=== PATIENT | male | born 1955 | race Caucasian/White ===

== ENCOUNTER → 2017-01-10 | Outpatient (CLI) | payer MEDICARE, MEDICAID ==
[~2017-01-10] MED LIST: ALPR0.5T; ALPR0.5T6; BENA20TA48; HYDR-3011; LUN1; NAPR-260; VIC
--- NOTE | 2017-01-10 15:59 | HKNOTE ---
DATE OF SERVICE: 01/10/2017 SUBJECTIVE: A 61-year-old male who presents today for followup status post left total hip revision surgery on 04/11/2011. Patient had original/primary hip replacement on 07/01/2008 but failed ASR [place] rgery. Since revision surgery in 2010, patient has been doing well. Denies any calf pain, shortnes s of breath or chest pain. The patient denies any pain directly to the hip, but has pain complaints daily, that he points to the left side buttock region. It does not radiate down the leg, but has c omplaints that it can radiate to the low back. Occasional numbness to the left foot. Denies any fa lls related to the hip. The patient did have a fall in September 2016 due to a slip on a wet floor. Denies any ongoing pain to the hip in that regard. Patient is walking up to 15 minutes before pain to the left buttock is onset. Pain to the left buttock can also ensue with sitting up to 30 minute s. Continues antibiotic prophylaxis/dental prophylaxis status post surgery. The patient also confi nena long history of low back pain. In regards to total hip revision surgery, patient states that it was a great success and continues to benefit. OBJECTIVE: VITAL SIGNS: Blood pressure is 114/58, temperature 98.9 degrees, pulse is 87, respiratory rate is 1 2, height is 5 feet 5 inches. GENERAL:. Gait is normal and nonantalgic. Well-healed surgical scar to the left buttock. Patient has full range of motion on active flexion, extension, abduction and adduction. 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 While the patient is performing range of motion in supine position, he romo s complaints of low back pain radiating to the buttock region. No calf pain/negative Homans sign. No radiating pain down the leg. There is 5/5 strength on resistance to the flexors and extensors of the left hip. Sensation is intact to light touch throughout the left lower extremity. Tenderness to palpation to the buttock region with no radiation down the leg. Mild numbness to the foot. IMAGING: X-ray to the left hip on 01/10/2017 showing all components well aligned and appeared to be well attached and integrated to the bone. No signs of lucency between metal and bone of the left h ip. ASSESSMENT AND PLAN: MRI of lumbar spine ordered today: 1. The patient will be referred to a financial assistance specialist upon completion of the MRI to the lumbar spin e for consultation and evaluation. 2. Continue dental prophylaxis status post hip revision surgery in 2010. Patient is aware that thi s will be for the remainder of his life. The patient advised to follow up on an as-needed basis as symptoms of discomfort seems to be coming from the spine in no relation to the left hip. The patien t made aware, however, that he may return should he experience any complications to the hip, status post surgery and he states understanding and compliance. Anti-inflammatories as needed for discomfort. The patient was given our standard plastic card containing instructions for the use of prophylactic antibiotics as a guideline should infection develop anywhere in the body, there be the need for tay pulation or scoping of the genitourinary tract or gastrointestinal tract, or for prophylaxis for den tistry. These instructions pertain for the rest of the patient's life. Dr. Gagnon was present during the examination today and agrees with the plan. Dictated By: YUMIKO MALDONADO for KARUNA GAGNON MD, KP/GUS Conf#: [id number] DID#: [id number]
--- NOTE | 2017-01-10 17:00 | RADRPT ---
PROCEDURE: XR Left Hip and pelvis. CLINICAL INDICATION: Left hip pain. Pelvic pain. Postop. TECHNIQUE: Two views. Frontal pelvis and lateral left hip. COMPARISON: 08/05/2014. FINDINGS: There is no fracture or dislocation. The soft tissues are normal. There is a left hip total arthroplasty which appears satisfactory. There are degenerative changes of the right hip with joint space narrowing and osteophytes. There i s no deformity. There is no lytic or blastic lesion. The upper pelvis is not included on the image. IMPRESSION: 1. Satisfactory postoperative appearance of the left hip. 2. Moderate degenerative change of the right hip. 3. Otherwise unremarkable study. RPTAT: QQ .Skyler Freeman MD, MD Date Time Electronically viewed and signed by .Skyler Freeman MD, on 01/10/2017 17:00 .R/
== END | disposition home or self-care (01) ==
LOC: HKI 13:51
DX: Z47.89 Encounter for other orthopedic aftercare (principal); M79.1 Myalgia; M54.5 Low back pain; R20.0 Anesthesia of skin; Z96.642 Presence of left artificial hip joint
CPT/HCPCS: 73502; G0463

== ENCOUNTER 2017-03-19 05:35 | Inpatient (IN) | payer MEDICARE, BC ==
[~2017-03-19] VITALS: Ht 165.1 cm; Wt 95.7 kg
[2017-03-19] VITALS (23 sets, daily range): BP systolic 95–159; BP diastolic 50–94; PULSE 70–92; RESP 16–26; Ht 165.1 cm; Wt 95.7 kg
[~2017-03-19 05:35] MED LIST changes: +LACTATED RINGER'S 1,000 ML IV* SCH
[2017-03-19] MEDS ORDERED: ALPR0.5T6 PO (05:47)
[2017-03-19] MEDS ORDERED: OLME20TA20 PO (05:47)
[2017-03-19] MEDS ORDERED: ZOLP10TA PO (05:47)
[2017-03-19] MEDS ORDERED: VANCOMYCIN 1 GM (PMX) 250 ML IVPB SCH ×2 (06:00→12:30)
[2017-03-19] MEDS ORDERED: SURGIFOAM POWDER 1 GM KIT ONE ×3 (06:41→09:51)
[2017-03-19] MEDS ORDERED: CEFAZOLIN 1 GM INJ ONE ×2 (06:42→07:05)
[2017-03-19] MEDS ORDERED: HEPARIN 1000 UNITS/ML 10 ML INJ ONE ×2 (06:42→08:57)
[2017-03-19] MEDS ORDERED: GELATIN SIZE 100 SPONGE ONE ×2 (06:42→08:53)
[2017-03-19] MEDS ORDERED: THROMBIN 5000 UNIT VIAL ONE ×4 (06:42→09:52)
[2017-03-19] MEDS ORDERED: BUPIVACAINE 0.25%/EPI (SDV) 30 ML INJ ONE (06:42)
[2017-03-19] MEDS ORDERED: SUCCINYLCHOLINE CHLORIDE 100 MG/5 ML SYG IV ONE (07:00)
[2017-03-19] MEDS ORDERED: GLYCOPYRROLATE 1 MG INJ ONE (07:00)
--- NOTE | 2017-03-19 07:02 | HPN ---
Date/Time of Note Date/Time of Note DATE: 03/19/17 TIME: 07:01 Interval H&P Admission Note Pt. seen H&P reviewed: No system changes DUGLAS ELIAS PA-C March 19, 2017 07:02
[2017-03-19] MEDS ORDERED: ROCURONIUM 50 MG INJ ONE (07:05)
[2017-03-19] MEDS ORDERED: PROPOFOL 20 ML ONE (07:05)
[2017-03-19] MEDS ORDERED: NEOSTIGMINE 3 MG/3 ML SYRINGE ONE (07:06)
[2017-03-19] MEDS ORDERED: MIDAZOLAM 1 MG/ML 2 ML INJ ONE (07:06)
[2017-03-19] MEDS ORDERED: ONDANSETRON 4 MG INJ ONE (07:06)
[2017-03-19] MEDS ORDERED: FENTAnyl 50 MCG/ML VIAL ONE (07:06)
[2017-03-19] MEDS ORDERED: DEXAMETHASONE 4 MG/ML 1 ML INJ ONE (07:06)
[2017-03-19] MEDS ORDERED: VANCOMYCIN 1 GM INJ ONE (08:05)
[2017-03-19] MEDS ORDERED: LABETALOL HCL 20MG INJ ONE (08:09)
[2017-03-19] MEDS ORDERED: MEPERIDINE 25 MG INJ IV PRN (08:30)
[2017-03-19] MEDS ORDERED: MIDAZOLAM 1 MG/ML 2 ML INJ IV PRN (08:30)
[2017-03-19] MEDS ORDERED: LABETALOL HCL 20MG INJ IV PRN (08:30)
[2017-03-19] MEDS ORDERED: TRIMETHOBENZAMIDE 100 MG/ML VIAL IM PRN (08:30)
[2017-03-19] MEDS ORDERED: EPHEDrine SULFATE 50 MG/5 ML SYG IV PRN (08:30)
[2017-03-19] MEDS ORDERED: ONDANSETRON 4 MG INJ IV PRN ×2 (08:30→12:30)
[2017-03-19] MEDS ORDERED: hydrALAzine 20 MG INJ IV PRN (08:30)
[2017-03-19] MEDS ORDERED: FENTAnyl 50 MCG/ML VIAL IV PRN ×3 (08:30)
[2017-03-19] MEDS ORDERED: HYDROmorphONE (0.2 MG/ML) 10ML SYG IV PRN ×2 (08:30)
[2017-03-19] MEDS ORDERED: DIPHENHYDRAMINE 50 MG INJ IV PRN ×2 (08:30→12:30)
[2017-03-19] MEDS ORDERED: PROPOFOL 100 ML ONE ×2 (08:39→11:13)
[2017-03-19] MEDS ORDERED: CA CHLORIDE 10% 10 ML SYRINGE ONE (08:57)
[2017-03-19] MEDS ORDERED: PHENYLephrine (100 MCG/ML) 5ML SYG ONE (09:50)
[2017-03-19] MEDS ORDERED: ALBUMIN HUMAN 5% 500 ML ONE (10:02)
--- NOTE | 2017-03-19 11:41 | OPR ---
DATE OF OPERATION: 03/19/2017 PREOPERATIVE DIAGNOSES: 1. L4-L5 retrolisthesis and stenosis. 2. L5-S1 grade 1 isthmic spondylolisthesis with stenosis, unstable. 3. Lumbar radiculopathy. 4. Morbid obesity (BMI 36). POSTOPERATIVE DIAGNOSES: 1. L4-L5 retrolisthesis and stenosis. 2. L5-S1 grade 1 isthmic spondylolisthesis with stenosis, unstable. 3. Lumbar radiculopathy. 4. Morbid obesity (BMI 36). OPERATION PERFORMED 1. Anterior lumbar interbody fusion at L4-L5 and L5-S1. 2. Placement of intervertebral biomechanical device with integral screws. 3. Placement of anterior locking plate at L4-L5 and L5-S1. 4. Use of allograft. 5. Use of C-arm fluoroscopy with interpretation without radiologist present. 6. Application of NuShield. 7. Intraoperative neuromonitoring (2 hours 45 minutes). IMPLANTS: 1. [employer] Tesera SA 38 x 30 mm with 11 mm height with 7 degree lordosis at L4-L5 with 25 mm screws and 38 x 30 mm with 13 mm height and 12 degree lordosis at L5-S1 with 25 mm screws into L5 and 30 m m screws into S1. 2. Fibergraft. 3. NuShield. PRIMARY SURGEON: Melquiades Lou MD COSURGEON: Julio Cesar Rasheed MD [employer] DEAN: JOEL Mccracken NEED FOR CO-SURGEON: A co-surgeon was required in order to perform the vascular access. This was a standard of care. FINDINGS: Neuromonitoring at the start of the case revealed right L4 amplitude down 30%, bilateral L5 amplitude down 30%, left S1 amplitude down 40%, right S1 amplitude down 30%. At the end of the c ase, all signals were normal. The patient had instability at both L4-L5 and L5-S1 with stenosis. S tandard instruments had to be utilized due to the patient's obesity. ESTIMATED BLOOD LOSS: Per Dr. Rasheed. DRAINS: None. SPECIMENS: L4-L5 and L5-S1 disk was sent to Pathology. COMPLICATIONS OF PROCEDURES: None. ANESTHESIOLOGIST: Marco A Barraza MD TYPE OF ANESTHESIA: General. INDICATIONS FOR PROCEDURE: This is a 62-year-old gentleman with lumbosacral radiculopathy in the se tting of stenosis and unstable listhesis. He failed nonoperative measures, therefore, I recommended proceeding with the above-mentioned surgery. Preoperatively, we discussed the risks, benefits, and alternatives. He understood and wished to proceed. DESCRIPTION OF PROCEDURE IN DETAIL: The patient was identified in the preoperative holding area, gi lazarus vancomycin antibiotics, taken to the operating room, where he was successfully placed under gene ral anesthesia. Neuromonitoring leads were placed, sequential compressive devices were applied. Fo sulema catheter introduced. Latex precautions were taken. Arterial line was placed. Neuromonitoring was utilized during this portion of the procedure for 2 hours and 45 minutes to include SSEP, MEP, a nd EMG. Start time was 8:00 a.m., closure time was 10:45 a.m. The patient was placed on the operative table in supine position. All bony prominences were well pa dded. The abdomen was prepped and draped in the usual sterile fashion. Dr. Rasheed performed an anterior retroperitoneal approach from the left. He will dictate the approach separately. Once he had identified the spine, I placed a bent spinal needle into the L5-S1 level and took AP and lateral images to confirm the correct levels. Next, annulotomy was made followed by radical diskectomy usi ng curettes, pituitary rongeurs, and Kerrison punches as well as distracters. I then placed various trials and chose the appropriate graft height. I then took the titanium cage within which I placed allograft and I impacted the intervertebral biomechanical device into the L5-S1 level to complete t he anterior lumbar interbody fusion. I then placed the integral screws into L5 and S1. I then plac ed an anterior locking plate. I then noticed that the 4 x 4 was stuck behind the locking plate and therefore, this had to be removed. The gauze was removed and the locking plate was reapplied. Of n ote, extended instruments had to be utilized due to the patient's obesity and this added complexity to the procedure. I then turned my attention to the L4-L5 level. Similarly here a radical diskectomy was performed. I then placed various trials and chose the appropriate graft height. I then took the titanium cage within which I placed allograft and I impacted intervertebral biomechanical device into the L4-L5 le ya to complete the anterior lumbar interbody fusion at this level. I then placed the integral scre ws into L4 and L5. I then placed anterior locking plate at L4-L5. Once this was done, all the nerv e signals returned to normal. I took final AP and lateral images and I was happy with the placement of the hardware and the alignment of the spine. The wound was then irrigated. NuShield device was applied and Dr. Rasheed proceeded to close the wound. He will dictate both the opening and the c losure of this procedure. Upon completion, the patient will be transferred into the prone position for stage II. During stage I, there were no apparent complications. Lap, sponge, and instrument co unts were correct x2. Dictated By: MELQUIADES BRUCE/GUS Conf#: [id number] DID#: [id number]
[2017-03-19] MEDS ORDERED: AL HYDROX/MG HYDROX/SIMETH 30 ML CUP PO PRN (12:30)
[2017-03-19] MEDS ORDERED: ZOLPIDEM 5 MG TAB PO PRN (12:30)
[2017-03-19] MEDS ORDERED: NALOXONE (0.4 MG/ML) INJ IV PRN (12:30)
[2017-03-19] MEDS ORDERED: HYDROmorphONE 1 MG/ML SYG IV PRN (12:30)
[2017-03-19] MEDS ORDERED: BISACODYL 10 MG SUPP PR PRN (12:30)
[2017-03-19] MEDS ORDERED: CEPASTAT LOZENGE MT PRN (12:30)
[2017-03-19] MEDS ORDERED: HYDROmorphONE 0.2 MG/ML PCA ONE (12:36)
[2017-03-19] MEDS: HYDROmorphONE 0.2 MG/ML PCA IV SCH (12:50)
[2017-03-19] MEDS: HYDROmorphONE (0.2 MG/ML) 10ML SYG IV PRN ×4 (12:51→13:31)
--- NOTE | 2017-03-19 13:10 | OPR ---
DATE OF OPERATION: 03/19/2017 PREOPERATIVE DIAGNOSIS: Status post anterior lumbar interbody fusion at L4-L5 and L5-S1 for instabi lity and stenosis with radiculopathy. POSTOPERATIVE DIAGNOSIS: Status post anterior lumbar interbody fusion at L4-L5 and L5-S1 for instab ility and stenosis with radiculopathy. OPERATIONS PERFORMED: 1. Pedicle screw placement at L4 and S1 bilaterally. 2. Posterolateral fusion at L4-L5 and L5-S1. 3. Use of allograft. 4. Bone marrow aspiration from L4. 5. Use of C-arm fluoroscopy with interpretation without radiologist present. 6. Intraoperative neuromonitoring (1 hour). IMPLANTS: 1. [place] [employer] pedicle screws 6.5 x 45 mm left L4, 6.5 x 40 mm right L4 and bilateral S1. 2. 60 mm rods. PRIMARY SURGEON: Melquiades Lou MD CIVIL ENGINEERING TECHNICIAN: JOEL Mccracken NEED FOR SUPERVISOR INTERNATIONAL RESERVATIONS: During this spinal surgical procedure, my banking assistant was used to retrac t and protect the spinal nerves and dural sac. My banking assistant also employed the suction catheters to evacuate blood from the surgical field to improve visualization of the neural structures. The christiano tant was medically necessary to facilitate the completion of the surgery in a safe and expeditious m liz. State of [place] regulations, as well as hospital bylaws, preclude the use of non-license d health care personnel, such as operating room technicians, to perform these functions. FINDINGS: Neuromonitoring at the end of the case was normal. ESTIMATED BLOOD LOSS: 40 mL. DRAINS: None. SPECIMENS: None. COMPLICATIONS OF PROCEDURE: None. ANESTHESIOLOGIST: Marco A Barraza MD TYPE OF ANESTHESIA: General. INDICATIONS FOR PROCEDURE: This is a 62-year-old gentleman with instability at L4-L5 and L5-S1 with radiculopathy. He failed nonoperative measures and completed stage I anterior approach which is di ctated separately, and now presents for stage II. DESCRIPTION OF PROCEDURE IN DETAIL: The patient completed the stage I anterior fusion at L4-L5 and L5-S1. This portion is dictated separately. Upon completion, he was placed on the operative room t able in prone position over a Waqar frame. All bony prominences were padded. The back was then pr epped and draped in the usual sterile fashion. Neuromonitoring was utilized for this stage of the p rocedure for 1 hour to include SSEP, MEP, and EMG. This was performed by [facility]. This st age started at 11:15 a.m. and was finished 12:15 p.m. Using the C-arm fluoroscope, I identified the incision site, anesthetized skin with Marcaine and epinephrine. An incision was then made parasag ittally over the L4 and S1 pedicles. Single incisions were used parasagittally. Jamshidi needles w ere then placed into the L4 and S1 pedicles bilaterally into the vertebral bodies. Due to the signi ficant lower doses, I elected to now place the L5 screws. Once the screws were in place under nydia nce, I performed a bone marrow aspiration from the left L4 vertebral body and pedicle. I then place d the appropriate size screws bilaterally at L4 and S1. Once this was done, I stimulated each of th e screws and there was no evidence of cortical breach. I then placed the 60 mm rods bilaterally wit h set screws placed with tightening per manufacture's specifications. The extension tabs were remov ed. At this point, all nerve signals remained normal. I irrigated the wound. I took final AP and lateral images and I was happy with placement of the hardware and alignment of the spine. I then pr epared the posterolateral gutters and placed allograft for a posterolateral fusion at L4-5 and L5-S1 bilaterally. I then closed the deep fascia with #1 Vicryl stitch. I closed subcutaneous tissue wi th a 2-0 Vicryl stitch. Dermabond was then applied. The patient was then awakened from anesthesia and taken to the recovery room in stable condition. Lap, sponge, and instrument counts were correct x2. There were no apparent complications during the procedure. The patient will be admitted to the orthopedic [facility] for routine postoperative care to include pain c ontrol, neurovascular checks, antibiotics, and physical therapy. Dictated By: MELQUIADES BRUCE/GUS Conf#: [id number] DID#: [id number]
--- NOTE | 2017-03-19 14:08 | RADRPT ---
PROCEDURE: XR Abdomen. CLINICAL INDICATION: Abdomen pain. Postop spine surgery. TECHNIQUE: AP supine abdomen x-ray. COMPARISON: None. FINDINGS: The bowel gas pattern is normal. There is no evidence of obstruction. There are no abnormal calcifications overlying the urinary tracts. There has been prior surgery with hardware in the lower lumbar spine. Overlying surgical clips are noted. There is a left hip total arthroplasty. A Su catheter is in the bladder. There is no ot her radiopaque foreign body. IMPRESSION: 1. Postoperative changes of the lower lumbar spine and left hip. 2. Su catheter. 3. No other radiopaque foreign body. RPTAT: QQ .Skyler Freeman MD, MD Date Time Electronically viewed and signed by .Skyler Freeman MD, on 03/19/2017 14:08 .R/
--- NOTE | 2017-03-19 14:09 | RADRPT ---
PROCEDURE: Intraoperative imaging of the lumbar spine with fluoroscopy. CLINICAL INDICATION: Back pain. Intraoperative. TECHNIQUE: 3 images of the lumbar spine were obtained in the operating room with an image intensif ier. No radiologist was in attendance. 35.1 seconds of fluoroscopy time was used. COMPARISON: No prior study is available for comparison. FINDINGS: Images demonstrate surgical instruments overlying the lower lumbar spine. IMPRESSION: 1. Intraoperative imaging of the lumbar spine. RPTAT: QQ .Skyler Freeman MD, MD Date Time Electronically viewed and signed by .Skyler Freeman MD, MD on 03/19/2017 14:08 .R/
--- NOTE | 2017-03-19 14:15 | CONS ---
DATE OF ADMISSION: 03/19/2017 DATE OF CONSULTATION: 03/19/2017 TYPE OF CONSULTATION: Postoperative Medical Consultative Note Thank you very much for allowing me to evaluate this 62-year-old male who just underwent posterior l umbar back surgery. HISTORICAL EVENTS: As you well know, this patient has had persistent back and bilateral leg pain an d for this, underwent evaluation by you and following imaging studies and the lack of conservative t herapy to help resolve, elected to proceed with surgery. Now in recovery, complaining of back pain without cough, wheezing, shortness of breath, nausea, vomiting, abdominal or chest pain. PAST MEDICAL HISTORY: Includes anxiety, arthritis, depression, hypertension, left hip replacement x 2. ALLERGIES: INCLUDE: 1. PENICILLIN. 2. LASIX. MEDICATIONS: 1. Xanax. 2. Ambien. 3. Naprosyn. 4. Ibuprofen. 5. Benicar. SOCIAL HISTORY: Nonsmoker, occasionally drinks. PHYSICAL EXAMINATION: GENERAL: Ald[place] male in no acute distress. VITAL SIGNS: Blood pressure 122/80, pulse 70, respirations are 20, he was afebrile. EYES: Extraocular muscles were full. NOSE, MOUTH, AND THROAT: Normal. NECK: Supple. There was no jugular venous distention, thyroid enlargement or adenopathy. Carotids 2+. LUNGS: Clear. HEART: Rhythm regular. No murmur. No third or fourth sound. ABDOMEN: Slight distension and 1+ tender. Liver and spleen not palpable. EXTREMITIES: No edema, no calf tenderness. IMPRESSION: 1. Status postop lumbar back surgery, stable. 2. History of hypertension. We will be certain as to medications he was taking at home and will co ntinue the same and monitor blood pressure throughout. 3. We will follow daily for signs and symptoms of thromboembolic disease. Dictated By: SAVANNA VIVAR/GUS Conf#: [id number] DID#: [id number] CC: ALETA ALBARADO MD;*EndCC*
--- NOTE | 2017-03-19 14:26 | RADRPT ---
PROCEDURE: Intraoperative imaging of the lumbar spine with fluoroscopy. CLINICAL INDICATION: Back pain. Intraoperative. TECHNIQUE: 5 images of the lumbar spine were obtained in the operating room with an image intensif ier. No radiologist was in attendance. 140 seconds of fluoroscopy time was used. COMPARISON: No prior study is available for comparison. FINDINGS: Multiple surgical instruments, screws, and rods are present in the lower lumbar spine. IMPRESSION: 1. Intraoperative imaging of the lumbar spine. RPTAT: QQ .Skyler Freeman MD, Date Time Electronically viewed and signed by .Skyler Freeman MD, on 03/19/2017 14:26 .R/
[2017-03-19] MEDS: ALPRAZOLAM 0.5 MG TAB PO SCH ×2 (14:40→21:00)
[2017-03-19] MEDS: D5W-0.45 NACL + KCL 20 MEQ 1,000 ML IV SCH (14:41)
[2017-03-19] MEDS ORDERED: LOSARTAN 50 MG TAB PO SCH (16:00)
[2017-03-19] MEDS: VANCOMYCIN 1 GM (PMX) 250 ML IVPB SCH (18:07)
[2017-03-19] MEDS: DOCUSATE SODIUM 100 MG CAP PO SCH (21:18)
[2017-03-20 00:42] VITALS: BP 101/58; RESP 18
[2017-03-20] MEDS: D5W-0.45 NACL + KCL 20 MEQ 1,000 ML IV SCH (01:08)
[2017-03-20] MEDS: HYDROmorphONE 0.2 MG/ML PCA IV SCH ×3 (01:32→20:46)
--- NOTE | 2017-03-20 03:02 | OPR ---
DATE OF OPERATION: PREOPERATIVE DIAGNOSIS: Degenerative disk disease, lumbosacral spine. POSTOPERATIVE DIAGNOSIS: Degenerative disk disease, lumbosacral spine. PROCEDURE: 1. Anterior retroperitoneal exposure, interbody fusion L4-L5. 2. Anterior retroperitoneal exposure, interbody fusion L5-S1. SURGEON: Dr. Rasheed CO-SURGEON: Dr. Albarado Risks, benefits, complications and alternative therapies explained to the patient and the family, co nsent obtained. OPERATIVE TECHNIQUE: The patient was placed in supine position, prepped and draped in usual sterile fashion. Time-out was called, antibiotics were given and I started. I made an 8 cm incision in the left lower quadrant below the umbilicus. Incision was taken down to the subcutaneous tissue which was then opened using electrocautery. Left anterior rectus sheath was opened in the direction of the wound. The retroperitoneal space was entered. Bookwalter retractor was placed retracting the bowel contents to the right and the left rectus muscle to the left. We p roceeded with dissecting the iliac vessels. The left iliolumbar vessel was ligated using 2-0 silk s utures and titanium clips. Middle sacral vessels were ligated in a similar fashion, exposure for L4 -L5 was obtained by retracting the left common iliac vessels and vena cava and aorta to the right. Exposure for L4-L5 was obtained by going between the right and left common iliac vessels. After the fusion was done, all the needle counts and sponge counts were correct. No evidence of any bleeding was noted. The wound was irrigated using antibiotic solution. Anterior rectus sheath was closed u sing #1 Vicryl suture in running fashion with interrupted sutures in the middle. The wound was irri gated and closed in 2 layers of 2-0 Vicryl suture for subcutaneous, and Steri-Strips for the skin. Patient tolerated procedure well. Dictated By: DINESH RASHEED MD FM/NTS Conf#: [id number] DID#: [id number] CC: ALETA ALBARADO MD;*EndCC*
[2017-03-20 05:13] LABS: ADD SCAN DIFF NO
[2017-03-20 05:14] VITALS: BP 111/58; PULSE 104; RESP 20
[2017-03-20 05:19] LABS: HEMATOCRIT 34.4 % (42.0-52.0); HEMOGLOBIN 11.7 g/dl (14.0-18.0); MEAN CORPUSCULAR HEMOGLOBIN 33.8 pg (29.0-33.0); MEAN CORPUSCULAR VOLUME 99.4 fl (82.0-101.0); MEAN PLATELET VOLUME 11.4 fl (7.4-10.4); PLATELET COUNT 165 10^3/UL (140-415); RED BLOOD COUNT 3.46 10^6/ul (4.70-6.10); WHITE BLOOD COUNT 4.3 10^3/ul (4.8-10.8)
[2017-03-20 05:23] LABS: POTASSIUM 4.4 mmol/L (3.5-5.1)
[2017-03-20 05:25] LABS: CREATININE 1.32 mg/dl (0.61-1.24)
[2017-03-20 05:26] LABS: MAGNESIUM 1.8 mg/dl (1.7-2.5)
[2017-03-20] MEDS: VANCOMYCIN 1 GM (PMX) 250 ML IVPB SCH (05:40)
[2017-03-20 07:00] VITALS: BP 93/45; RESP 20
--- NOTE | 2017-03-20 08:22 | CONS ---
Date/Time of Note Date/Time of Note DATE: 03/20/17 TIME: 08:19 Assessment/Plan Assessment/Plan Additional Assessment/Plan 1. Post op lumbar back surgery, anterior approach with mild ileus, KUB was ordered, diet changed to clear liquid 2. Hx HBP, not problematic 3. Mild acute renal failure sec to periop hypotension and ARB which I stopped. Consultation Date/Type/Reason Admit Date/Time March 19, 2017 at 05:35 Initial Consult Date Detailed Summary Respiratory: pleuritic pain, No cough, No shortness of breath Cardiovascular: No chest pain Gastrointestinal: pain (is mild and bloated, he had 1 episdoe of dry heaving) Genitourinary: other (sevilla in place) Musculoskeletal: back pain (back pain is moderate) Exam/Review of Systems Vital Signs Vitals Vital Signs Date Time Temp Pulse Resp B/P Pulse Ox O2 Delivery O2 Flow Rate FiO2 03/20/17 07:00 97.9 105 20 93/45 100 03/20/17 05:14 Nasal Cannula 2.0 Intake and Output 03/19/17 03/19/17 03/20/17 15:00 23:00 07:00 Intake Total 3900 ml 1150 ml 1140 ml Output Total 650 ml 900 ml 450 ml Balance 3250 ml 250 ml 690 ml Exam Neck: No jvd Respiratory: clear to auscultation Cardiovascular: regular rate and rhythm Gastrointestinal: other (distended, few bs present, 1+ gen tender) Results Result Diagram: 03/20/17 0434 03/20/17 0434 Results 24 hrs Laboratory Tests Test 03/20/17 04:34 White Blood Count 4.3 L Red Blood Count 3.46 L Hemoglobin 11.7 L Hematocrit 34.4 L Mean Corpuscular Volume 99.4 Mean Corpuscular Hemoglobin 33.8 H Mean Corpuscular Hemoglobin Concent 34.0 Red Cell Distribution Width 13.0 Platelet Count 165 Mean Platelet Volume 11.4 H Neutrophils % Eosinophils % Neutrophils # Eosinophils # Sodium Level 138 Potassium Level 4.4 Chloride Level 102 Carbon Dioxide Level 27 Anion Gap 13 Blood Urea Nitrogen 13 Creatinine 1.32 H Glucose Level 151 Calcium Level 8.0 L Magnesium Level 1.8 Medications Medications Current Medications Potassium Chloride/Dextrose/ Sod Cl (D5-1/2ns + KCl 20 Meq) 1,000 ml @ 100 mls/ hr Q10H IV Last administered on 03/20/17 01:08; Admin Dose 100 MLS/HR; Start 03/19/17 at 12:22 Oxycodone/ Acetaminophen (Endocet (10/ 325)) 1 tab Q4H PRN PO PAIN LEVEL 1-5; Start 03/21/17 at 10:00 Oxycodone/ Acetaminophen (Endocet (10/ 325)) 2 tab Q4H PRN PO PAIN LEVEL 6-10; Start 03/21/17 at 10:00 Hydromorphone HCl (Dilaudid) 0.2 mg Q1H PRN IV BREAKTHROUGH PAIN Last administered on 03/19/17 14:28; Admin Dose 0.2 MG; Start 03/19/17 at 12:30 Ondansetron HCl (Zofran Inj) 4 mg Q6H PRN IV NAUSEA AND/OR VOMITING Last administered on 03/20/17 01:08; Admin Dose 4 MG; Start 03/19/17 at 12:30 Bisacodyl (Dulcolax Supp) 10 mg DAILY PRN DE CONSTIPATION; Start 03/19/17 at 12: 30 Docusate Sodium (Colace) 100 mg BID PO Last administered on 03/19/17 21:18; Admin Dose 100 MG; Start 03/19/17 at 21:00 Al Hydrox/Mg Hydrox/Simethicone (Mag-Al Plus) 15 ml Q6H PRN PO CONSTIPATION/ DYSPEPSIA; Start 03/19/17 at 12:30 Acetaminophen (Tylenol Tab) 650 mg Q4H PRN PO CONNORS OR TEMP GREATER THAN 101.3F; Start 03/19/17 at 12:30 Carisoprodol (Soma) 350 mg TID PRN PO MUSCLE SPASMS; Start 03/19/17 at 12:30 Phenol (Cepastat Lozenge) 1 lozenge PRN PRN MT SORE THROAT; Start 03/19/17 at 12 :30 Diphenhydramine HCl (Benadryl) 25 mg Q6H PRN IV ITCHING; Start 03/19/17 at 12:30 Naloxone HCl (Narcan) 0.2 mg Q2M PRN IV RR 8 BREATHS/MIN OR LESS; Start at 12:30 Hydromorphone HCl (Dilaudid CAMPAIGN MARKETING MANAGER) CAMPAIGN MARKETING MANAGER to be started in PACU Q4PCA IV Last administered on 03/20/17 01:32; Admin Dose 6 MG; Start 03/19/17 at 12:30; Stop 03/21/17 at 10:00 Miscellaneous Information 1. Hold CAMPAIGN MARKETING MANAGER at 1,000... CAMPAIGN MARKETING MANAGER IV ; Start 03/19/17 at 12: 30 Alprazolam (Xanax) 0.5 mg BID PO Last administered on 03/19/17 14:40; Admin Dose 0.5 MG; Start 03/19/17 at 14:00 SAVANNA CURRY MD March 20, 2017 08:22
[2017-03-20 08:47] LABS: ALBUMIN 3.7 g/dl (3.3-4.9); BILIRUBIN,INDIRECT 0.5 mg/dl (0-1.1); BILIRUBIN,TOTAL 0.5 mg/dl (0.2-1.3); TOTAL PROTEIN 6.1 g/dl (6.1-8.1)
[2017-03-20 09:00] VITALS: BP 106/61; RESP 18
[2017-03-20] MEDS: SOD CHLORIDE 0.9% 1,000 ML IV SCH ×2 (09:38→18:08)
[2017-03-20] MEDS: ALPRAZOLAM 0.5 MG TAB PO SCH ×2 (09:40→20:22)
[2017-03-20] MEDS: DOCUSATE SODIUM 100 MG CAP PO SCH ×2 (09:40→20:22)
[2017-03-20 09:52] LABS: ADD UMIC YES; URINE BILIRUBIN (Dip) NEGATIVE (NEGATIVE); URINE BLOOD (Dip) 3+ (NEGATIVE); URINE COLOR YELLOW (YELLOW); URINE GLUCOSE (Dip) NEGATIVE (NEGATIVE); URINE KETONES (Dip) NEGATIVE (NEGATIVE); URINE LEUKOCYTE ESTERASE (Dip) NEGATIVE (NEGATIVE); URINE NITRITE (Dip) NEGATIVE (NEGATIVE); URINE TOTAL PROTEIN (Dip) 1+ (NEGATIVE); URINE UROBILINOGEN (Dip) 0.2 E.U./dL (0.1-1.0)
[2017-03-20 10:11] LABS: BACTERIA,URINE FEW
[2017-03-20 11:26] LABS: LYMPHOCYTES # 0.7 10^3/ul (0.8-2.9); MONOCYTE # 0.3 10^3/ul (0.3-0.9); MYELOCYTES # 0.1
--- NOTE | 2017-03-20 12:18 | PN ---
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 saturday Subjective 24 Hr Interval Summary patient c/o LBP, abdominal fullness Exam/Review of Systems Vital Signs Vitals Vital Signs Date Time Temp Pulse Resp B/P Pulse Ox O2 Delivery O2 Flow Rate FiO2 03/20/17 09:00 98.1 18 106/61 96 Nasal Cannula 2.0 03/20/17 07:00 105 Intake and Output 03/19/17 03/19/17 03/20/17 15:00 23:00 07:00 Intake Total 3900 ml 1150 ml 1140 ml Output Total 650 ml 900 ml 450 ml Balance 3250 ml 250 ml 690 ml Exam Free Text/Dictation NVID no calf TTP/cording, no LE edema Results Result Diagram: 03/20/17 0434 03/20/17 0434 DUGLAS ELIAS PA-C March 20, 2017 12:18
[2017-03-20] MEDS: CARISOPRODOL 350 MG TAB PO PRN (18:07)
[2017-03-20 19:53] VITALS: BP 117/58; RESP 19
[2017-03-20 21:45] VITALS: BP 102/54; PULSE 138; RESP 18
[2017-03-20] MEDS ORDERED: ALPRAZOLAM 0.25 MG TAB PO ONE (23:00)
[2017-03-21] VITALS (9 sets, daily range): BP systolic 83–110; BP diastolic 44–59; PULSE 98–125; RESP 19–20
[2017-03-21] MEDS: SOD CHLORIDE 0.9% 1,000 ML IV SCH ×3 (04:28→21:13)
[2017-03-21 04:43] LABS: ADD SCAN DIFF NO
[2017-03-21 04:53] LABS: HEMATOCRIT 28.4 % (42.0-52.0); HEMOGLOBIN 9.7 g/dl (14.0-18.0); MEAN CORPUSCULAR HGB CONC 34.2 g/dl (32.0-37.0); MEAN CORPUSCULAR VOLUME 99.6 fl (82.0-101.0); MEAN PLATELET VOLUME 11.3 fl (7.4-10.4); PLATELET COUNT 139 10^3/UL (140-415); RED BLOOD COUNT 2.85 10^6/ul (4.70-6.10); RED CELL DISTRIBUTION WIDTH 13.3 % (11.5-14.5); WHITE BLOOD COUNT 7.7 10^3/ul (4.8-10.8)
[2017-03-21 05:26] LABS: CALCIUM 7.7 mg/dl (8.4-10.2); CREATININE 1.89 mg/dl (0.61-1.24); MAGNESIUM 1.7 mg/dl (1.7-2.5); POTASSIUM 4.7 mmol/L (3.5-5.1)
--- NOTE | 2017-03-21 08:05 | CONS ---
Date/Time of Note Date/Time of Note DATE: 03/21/17 TIME: 07:58 Assessment/Plan Assessment/Plan Additional Assessment/Plan 1. Post op lumbar laminectomy 2. Acute renal failure, sec to perioperative hypotension, renal ultz ordered, Elizabeth noted 3. Hx HBP, inactive 4. Tachycardia last night, EKG revealed sinus,.cards to see, Troponin ordered Consultation Date/Type/Reason Admit Date/Time March 19, 2017 at 05:35 Detailed Summary Respiratory: No cough, No shortness of breath Cardiovascular: No chest pain Gastrointestinal: other (bloated) Genitourinary: other (sevilla in place) Musculoskeletal: back pain (moderate) Exam/Review of Systems Vital Signs Vitals Vital Signs Date Time Temp Pulse Resp B/P Pulse Ox O2 Delivery O2 Flow Rate FiO2 03/21/17 07:40 98.2 119 19 83/44 93 03/20/17 21:45 Nasal Cannula 2.0 Intake and Output 03/20/17 03/20/17 03/21/17 15:00 23:00 07:00 Intake Total 1500 ml 1450 ml Output Total 1000 ml 1000 ml Balance 500 ml 450 ml Exam Neck: No jvd Respiratory: clear to auscultation Cardiovascular: regular rate and rhythm Gastrointestinal: other (distended with few bs, mild gen tend) Extremities: No edema (and no calf tend) Results Result Diagram: 03/21/17 0415 03/21/17 0415 Results 24 hrs Laboratory Tests Test 03/20/17 09:15 03/21/17 04:15 Urine Color YELLOW Urine Clarity SLIGHTLY CLOUDY Urine pH 5.5 Urine Specific [place] >=1.030 H Urine Ketones NEGATIVE Urine Nitrite NEGATIVE Urine Bilirubin NEGATIVE Urine Urobilinogen 0.2 E.U./dL Urine Leukocyte Esterase NEGATIVE Urine Microscopic RBC 2-5 Urine Microscopic WBC 0-2 Urine Bacteria FEW Urine Hemoglobin 3+ H Urine Random Sodium 45 Urine Glucose NEGATIVE Urine Total Protein 1+ H White Blood Count 7.7 # Red Blood Count 2.85 L Hemoglobin 9.7 L Hematocrit 28.4 L Mean Corpuscular Volume 99.6 Mean Corpuscular Hemoglobin 34.0 H Mean Corpuscular Hemoglobin Concent 34.2 Red Cell Distribution Width 13.3 Platelet Count 139 L Mean Platelet Volume 11.3 H Neutrophils % Eosinophils % Neutrophils # Eosinophils # Sodium Level 132 L Potassium Level 4.7 Chloride Level 100 Carbon Dioxide Level 27 Anion Gap 10 Blood Urea Nitrogen 18 Creatinine 1.89 H Glucose Level 118 Calcium Level 7.7 L Phosphorus Level 3.4 Magnesium Level 1.7 Medications Medications Current Medications Oxycodone/ Acetaminophen (Endocet ( 325)) 1 tab Q4H PRN PO PAIN LEVEL 1-5; Start 03/21/17 at 10:00 Oxycodone/ Acetaminophen (Endocet ( 325)) 2 tab Q4H PRN PO PAIN LEVEL 6-10; Start 03/21/17 at 10:00 Hydromorphone HCl (Dilaudid) 0.2 mg Q1H PRN IV BREAKTHROUGH PAIN Last administered on 03/19/17 14:28; Admin Dose 0.2 MG; Start 03/19/17 at 12:30 Ondansetron HCl (Zofran Inj) 4 mg Q6H PRN IV NAUSEA AND/OR VOMITING Last administered on 03/20/17 01:08; Admin Dose 4 MG; Start 03/19/17 at 12:30 Bisacodyl (Dulcolax Supp) 10 mg DAILY PRN [place] CONSTIPATION; Start 03/19/17 at 12: 30 Docusate Sodium (Colace) 100 mg BID PO Last administered on 03/20/17 20:22; Admin Dose 100 MG; Start 03/19/17 at 21:00 Al Hydrox/Mg Hydrox/Simethicone (Mag-Al Plus) 15 ml Q6H PRN PO CONSTIPATION/ DYSPEPSIA; Start 03/19/17 at 12:30 Acetaminophen (Tylenol Tab) 650 mg Q4H PRN PO CONNORS OR TEMP GREATER THAN 101.3F; Start 03/19/17 at 12:30 Carisoprodol (Soma) 350 mg TID PRN PO MUSCLE SPASMS Last administered on 18:07; Admin Dose 350 MG; Start 03/19/17 at 12:30 Phenol (Cepastat Lozenge) 1 lozenge PRN PRN [place] SORE THROAT; Start 03/19/17 at 12 :30 Diphenhydramine HCl (Benadryl) 25 mg Q6H PRN IV ITCHING; Start 03/19/17 at 12:30 Naloxone HCl (Narcan) 0.2 mg Q2M PRN IV RR 8 BREATHS/MIN OR LESS; Start at 12:30 Hydromorphone HCl (Dilaudid RADIOLOGY RECEPTIONIST) RADIOLOGY RECEPTIONIST to be started in PACU Q4PCA IV Last administered on 03/20/17 20:46; Admin Dose 6 MG; Start 03/19/17 at 12:30; Stop 03/21/17 at 10:00 Miscellaneous Information 1. Hold RADIOLOGY RECEPTIONIST at 1,000... RADIOLOGY RECEPTIONIST IV ; Start 03/19/17 at 12: 30 Alprazolam 0.5 mg 0.5 mg BID PO Last administered on 03/20/17 20:22; Admin Dose 0.5 MG; Start 03/19/17 at 14:00 Sodium Chloride (NS) 1,000 ml @ 100 mls/hr Q10H IV Last administered on 18:08; Admin Dose 100 MLS/HR; Start 03/20/17 at 08:30 SAVANNA CURRY MD March 21, 2017 08:05
[2017-03-21] MEDS ORDERED: SOD CHLORIDE 0.9% 250 ML IV ONE (08:30)
--- NOTE | 2017-03-21 08:37 | DS ---
DATE OF ADMISSION: 03/19/2017 DATE OF DISCHARGE: 03/23/2017 ADMITTING DIAGNOSIS: Spondylolisthesis and stenosis. DISCHARGE DIAGNOSES: Spondylolisthesis and stenosis. PROCEDURE: The patient was taken to the operating room on March 19 and underwent anterior lumbar interbody fusion with posterior instrumented fusion at L4-L5 and L5-S1. HOSPITAL COURSE: The patient was admitted to the [facility] after undergoing the above procedure. On postoperative day 2, he had tachicardia and ARF. He was transferred to [facility]. His labs and vitals improved. His HCT was 26.6 but asymptomatic. He was deemed stable for transfer to [facility] with followup arranged with the undersigned. Dictated By: ALETA BRUCE/GUS Conf#: [id number] DID#: [id number] MTDD
[2017-03-21] MEDS: ALPRAZOLAM 0.5 MG TAB PO SCH ×2 (09:00→21:36)
[2017-03-21] MEDS: DOCUSATE SODIUM 100 MG CAP PO SCH ×2 (09:05→21:36)
--- NOTE | 2017-03-21 09:12 | CONS ---
Date/Time of Note Date/Time of Note DATE: 03/21/17 TIME: 08:59 Assessment/Plan Assessment/Plan Chief Complaint/Hosp Course 1. Post op lumbar laminectomy/spinal fusion. 2. Acute renal failure 3. Sinus tachchycardia- unlikely from primary cardiac disease. could be related to back or abd pain or dehydration. consider PE vs. infection as well 4. h/o of htn Recommendations: - continued pain control - obtain 2d echo to assess lv/rv fxn/rv pressures - workup for secondary causes of sinus tachy as mentioned above will follow Problems: Consultation Date/Type/Reason Admit Date/Time March 19, 2017 at 05:35 Date of Consultation: March 21, 2018 Type of Consultation: Cardiology Reason for Consultation Tachycardia Referring Provider: SAVANNA CURRY MD Hx of Present Illness Mr. Saba is a 62 y.o. with h/o of htn, hld and back pain/radiculopathy. He is s/p spinal fusion surgery 03/19. Post op he reports he has had continued pain, currently 02/18. Also with abd pain near incision site without bm. Has had poor intake with nausea, fullness. no vomitting. Pt noted to have elevated HR, ekg check shows sinus tachycardia and pt transferred to tele floor. he denies any chest pain/pressure, sob. he denies palpitations, dizziness, lightheadedness. has been out of bed with PT, otherwise just in bed he states. has compression stockings in place. denies any cough, hemoptysis. has h/o hand numbness at times he states, non exertional. Constitutional: other (back pain) Eyes: no complaints ENT: no complaints Respiratory: no complaints, No cough, No shortness of breath Cardiovascular: no complaints, No chest pain Gastrointestinal: other (bloated), pain Genitourinary: other (sevilla in place) Musculoskeletal: back pain (moderate) Skin: no complaints Neurologic: no complaints Endocrine: no complaints, polyuria Psychological: no complaints Past Medical History anxiety, arthritis, depression, hypertension Past Surgical History hip replacement, abd surgery Family History Significant Family History: other (no cad) Social History Alcohol Use: rarely Smoking Status: Never smoker Drug Use: none Exam/Review of Systems Vital Signs Vitals Vital Signs Date Time Temp Pulse Resp B/P Pulse Ox O2 Delivery O2 Flow Rate FiO2 03/21/17 08:57 119 5/11/17 08:53 99.9 20 107/59 98 03/20/17 21:45 Nasal Cannula 2.0 Intake and Output 03/20/17 03/20/17 03/21/17 15:00 23:00 07:00 Intake Total 1500 ml 1450 ml Output Total 1000 ml 1000 ml Balance 500 ml 450 ml Exam Constitutional: alert, oriented Psych: nl mood/affect, no complaints Head: normocephalic Eyes: EOMI, nl conjunctiva, nl lids ENMT: mucosa pink and moist Neck: non-tender, supple, No jvd Respiratory: clear to auscultation, normal air movement Cardiovascular: nl pulses, other (tachy), No S3, No S4, No edema, No irregular rhythm, No jugular venous distention ( JVD), No murmurs/extra sounds Gastrointestinal: bowel sounds, distended, tender, No rebound or guarding Musculoskeletal: nl extremities to inspection Extremities: normal pulses Neurological: TRIAL MANAGER II-XII intact, nl mental status, nl speech, nl strength Results Result Diagram: 03/21/17 0415 03/21/17 0415 Results 24 hrs Laboratory Tests Test 03/20/17 09:15 03/21/17 04:15 Urine Color YELLOW Urine Clarity SLIGHTLY CLOUDY Urine pH 5.5 Urine Specific [place] >=1.030 H Urine Ketones NEGATIVE Urine Nitrite NEGATIVE Urine Bilirubin NEGATIVE Urine Urobilinogen 0.2 E.U./dL Urine Leukocyte Esterase NEGATIVE Urine Microscopic RBC 2-5 Urine Microscopic WBC 0-2 Urine Bacteria FEW Urine Hemoglobin 3+ H Urine Random Sodium 45 Urine Glucose NEGATIVE Urine Total Protein 1+ H White Blood Count 7.7 # Red Blood Count 2.85 L Hemoglobin 9.7 L Hematocrit 28.4 L Mean Corpuscular Volume 99.6 Mean Corpuscular Hemoglobin 34.0 H Mean Corpuscular Hemoglobin Concent 34.2 Red Cell Distribution Width 13.3 Platelet Count 139 L Mean Platelet Volume 11.3 H Neutrophils % Eosinophils % Neutrophils # Eosinophils # Sodium Level 132 L Potassium Level 4.7 Chloride Level 100 Carbon Dioxide Level 27 Anion Gap 10 Blood Urea Nitrogen 18 Creatinine 1.89 H Glucose Level 118 Calcium Level 7.7 L Phosphorus Level 3.4 Magnesium Level 1.7 Medications Medications Current Medications Oxycodone/ Acetaminophen (Endocet ()) 1 tab Q4H PRN PO PAIN LEVEL 1-5; Start 03/21/17 at 10:00 Oxycodone/ Acetaminophen (Endocet (10/ 325)) 2 tab Q4H PRN PO PAIN LEVEL 6-10; Start 03/21/17 at 10:00 Hydromorphone HCl (Dilaudid) 0.2 mg Q1H PRN IV BREAKTHROUGH PAIN Last administered on 03/19/17 14:28; Admin Dose 0.2 MG; Start 03/19/17 at 12:30 Ondansetron HCl (Zofran Inj) 4 mg Q6H PRN IV NAUSEA AND/OR VOMITING Last administered on 03/20/17 01:08; Admin Dose 4 MG; Start 03/19/17 at 12:30 Bisacodyl (Dulcolax Supp) 10 mg DAILY PRN [place] CONSTIPATION; Start 03/19/17 at 12: 30 Docusate Sodium (Colace) 100 mg BID PO Last administered on 03/20/17 20:22; Admin Dose 100 MG; Start 03/19/17 at 21:00 Al Hydrox/Mg Hydrox/Simethicone (Mag-Al Plus) 15 ml Q6H PRN PO CONSTIPATION/ DYSPEPSIA; Start 03/19/17 at 12:30 Acetaminophen (Tylenol Tab) 650 mg Q4H PRN PO CONNORS OR TEMP GREATER THAN 101.3F; Start 03/19/17 at 12:30 Carisoprodol (Soma) 350 mg TID PRN PO MUSCLE SPASMS Last administered on 18:07; Admin Dose 350 MG; Start 03/19/17 at 12:30 Phenol (Cepastat Lozenge) 1 lozenge PRN PRN MT SORE THROAT; Start 03/19/17 at 12 :30 Diphenhydramine HCl (Benadryl) 25 mg Q6H PRN IV ITCHING; Start 03/19/17 at 12:30 Naloxone HCl (Narcan) 0.2 mg Q2M PRN IV RR 8 BREATHS/MIN OR LESS; Start at 12:30 Alprazolam 0.5 mg 0.5 mg BID PO Last administered on 03/20/17 20:22; Admin Dose 0.5 MG; Start 03/19/17 at 14:00 Sodium Chloride 1,000 ml @ 125 mls/hr Q8H IV Last administered on 03/20/17t 18 :08; Admin Dose 100 MLS/HR; Start 03/20/17 at 08:30 Magnesium Sulfate (Magnesium Sulfate 2 Gm/50 ml) 50 ml @ 25 mls/hr ONCE ONCE IVPB ; Start 03/21/17 at 10:00; Stop 03/21/17 at 11:59 Procedures Procedures ekg reviewed: sinus tachy, no ischemic abnl abd xray reviewed no obstruction NISHANT KESSLER March 21, 2017 09:10
--- NOTE | 2017-03-21 09:40 | RADRPT ---
PROCEDURE: US Lower extremity Venous. CLINICAL INDICATION: Bilateral lower extremity edema , hypotension TECHNIQUE: Multiple sonographic images of the bilateral lower extremity deep venous system was obt ained utilizing grayscale, color-flow, compressive sonography and doppler imaging with augmentation. The images were reviewed on a PACS workstation. COMPARISON: None. FINDINGS: There is normal compressibility and flow within the bilateral common femoral, femoral , posterior ti bial and popliteal veins. RPTAT: AA IMPRESSION: No sonographic evidence for deep venous thrombosis. .Ilan El MD, MD Date Time Electronically viewed and signed by .Ilan El MD, on 03/21/2017 09:40 .S/
--- NOTE | 2017-03-21 09:50 | RADRPT ---
PROCEDURE: Renal Ultrasound CLINICAL INDICATION: Acute renal failure TECHNIQUE: Evaluation of the kidneys and bladder was performed as well with sawyer scale and color and Doppler evaluation using a curved array transducer. The images were reviewed on a high-resoluti on PACS workstation. COMPARISON: No prior studies are available for comparison. FINDINGS: The kidneys are well visualized. No renal masses or calcifications are seen. There is no hydronephr osis. The right kidney measures 11.3 cm in length. The left kidney measures 12.1 cm in length. No perinephric fluid collection is seen. The bladder is nondistended and not visualized. IMPRESSION: 1. Unremarkable renal ultrasound. RPTAT: KK .Evin Sunshine MD, Date Time Electronically viewed and signed by .Evin Sunshine MD, MD on 03/21/2017 09:50 .B/
[2017-03-21] MEDS ORDERED: MAGNESIUM SULFATE 2 GM/50 ML 50 ML IVPB ONE (10:00)
--- NOTE | 2017-03-21 10:35 | RADRPT ---
Vent Rate: 121 bpm RR Interval: 0 msec [place] Interval: 142 msec QRS Duration: 74 msec QT Interval: 330 msec QTC Interval: 468 msec P-R-T [place]: 45 - 43 - 61 degrees Sinus tachycardia Nonspecific T wave abnormality Abnormal ECG Electronically Signed By: Usman Thomas [id number]
--- NOTE | 2017-03-21 10:35 | RADRPT ---
Vent Rate: 132 bpm RR Interval: 0 msec [place] Interval: 140 msec QRS Duration: 72 msec QT Interval: 300 msec QTC Interval: 444 msec P-R-T [place]: 35 - 25 - 50 degrees Sinus tachycardia Otherwise normal ECG Electronically Signed By: Usman Thomas [id number]
--- NOTE | 2017-03-21 10:36 | RADRPT ---
Vent Rate: 115 bpm RR Interval: 0 msec IN Interval: 140 msec QRS Duration: 78 msec QT Interval: 332 msec QTC Interval: 459 msec P-R-T [place]: 44 - 43 - 54 degrees Sinus tachycardia Otherwise normal ECG Electronically Signed By: Usman Thomas [id number]
[2017-03-21 13:58] LABS: BASOPHIL # 0.2 10^3/ul (0.0-0.1); EOSINOPHILS # 0.2 10^3/ul (0.0-0.5); LYMPHOCYTES # 1.3 10^3/ul (0.8-2.9); MONOCYTE # 0.5 10^3/ul (0.3-0.9); NEUTROPHIL # 4.6 10^3/ul (1.6-7.5)
[2017-03-21 14:53] LABS: ADD SCAN DIFF NO
[2017-03-21 14:56] LABS: BASOPHILS % 0.2 % (0.0-2.0); EOSINOPHILS # 0.1 10^3/ul (0.0-0.5); HEMOGLOBIN 10.5 g/dl (14.0-18.0); MEAN CORPUSCULAR HEMOGLOBIN 34.5 pg (29.0-33.0); MEAN CORPUSCULAR VOLUME 98.7 fl (82.0-101.0); MEAN PLATELET VOLUME 11.4 fl (7.4-10.4); MONOCYTE # 1.1 10^3/ul (0.3-0.9); NEUTROPHIL # 7.4 10^3/ul (1.6-7.5); NEUTROPHILS % 77.4 % (39.0-77.0); PLATELET COUNT 152 10^3/UL (140-415); RED BLOOD COUNT 3.04 10^6/ul (4.70-6.10); RED CELL DISTRIBUTION WIDTH 13.2 % (11.5-14.5); WHITE BLOOD COUNT 9.6 10^3/ul (4.8-10.8)
[2017-03-21] MEDS: ACETAMINOPHEN 325 MG TAB PO PRN ×2 (15:08→20:02)
[2017-03-21] MEDS: OXYCODONE/ACETAMINOPHEN (10/325) TAB PO PRN ×2 (17:36→22:23)
[2017-03-22] VITALS (12 sets, daily range): BP systolic 102–128; BP diastolic 57–74; PULSE 90–104; RESP 18–20
[2017-03-22] MEDS: SOD CHLORIDE 0.9% 1,000 ML IV SCH ×2 (05:13→20:20)
[2017-03-22] MEDS: OXYCODONE/ACETAMINOPHEN (10/325) TAB PO PRN ×4 (06:50→20:46)
--- NOTE | 2017-03-22 07:25 | RADRPT ---
PROCEDURE: XR Chest. CLINICAL INDICATION: Cough TECHNIQUE: A single AP view of the chest was obtained. COMPARISON: None. FINDINGS: There is mild bibasilar atelectasis. No focal airspace opacification, pleural effusion or pneumotho rax is seen. The cardiomediastinal silhouette is within normal limits for size. The osseous struct ures are unremarkable. IMPRESSION: 1.No radiographic evidence of acute cardiopulmonary disease. 2. Mild bibasilar atelectasis. RPTAT: HH .Ramya Orellana MD, MD Date Time Electronically viewed and signed by .Ramya Orellana MD, on 03/22/2017 07:25 .G/
[2017-03-22 07:58] LABS: ADD SCAN DIFF NO
[2017-03-22 08:03] LABS: BASOPHILS % 0.2 % (0.0-2.0); EOSINOPHILS # 0.1 10^3/ul (0.0-0.5); EOSINOPHILS % 0.7 % (0.0-7.0); HEMATOCRIT 29.4 % (42.0-52.0); HEMOGLOBIN 9.9 g/dl (14.0-18.0); LYMPHOCYTES # 1.1 10^3/ul (0.8-2.9); LYMPHOCYTES % 10.7 % (15.0-51.0); MEAN CORPUSCULAR HEMOGLOBIN 33.1 pg (29.0-33.0); MEAN CORPUSCULAR HGB CONC 33.7 g/dl (32.0-37.0); MEAN CORPUSCULAR VOLUME 98.3 fl (82.0-101.0); MEAN PLATELET VOLUME 11.8 fl (7.4-10.4); MONOCYTE # 1.3 10^3/ul (0.3-0.9); NEUTROPHIL # 8.1 10^3/ul (1.6-7.5); NEUTROPHILS % 75.8 % (39.0-77.0); PLATELET COUNT 157 10^3/UL (140-415); RED BLOOD COUNT 2.99 10^6/ul (4.70-6.10); RED CELL DISTRIBUTION WIDTH 13.3 % (11.5-14.5); WHITE BLOOD COUNT 10.6 10^3/ul (4.8-10.8)
--- NOTE | 2017-03-22 08:27 | CONS ---
Date/Time of Note Date/Time of Note DATE: 03/22/17 TIME: 08:23 Assessment/Plan Assessment/Plan Additional Assessment/Plan 1. S/P lumbar back surgery, stable/ 2. ARF, suspect this has improved as inc urine output. 3. Tachycardia resolving, sec to pain and vol contraction, cards eval noted. 4. To dc [place] 5. Temp yest, cult neg so far. 6. Ileus improved, will adv diet and get follow up kub Consultation Date/Type/Reason Admit Date/Time March 19, 2017 at 05:35 Type of Consultation: Cardiology Referring Provider: SAVANNA CURRY MD Detailed Summary Respiratory: No cough, No shortness of breath Cardiovascular: No chest pain Gastrointestinal: other (less abd bloating but no BM yet) Genitourinary: other (sevilla in place) Musculoskeletal: back pain (back pain is sl better) Exam/Review of Systems Vital Signs Vitals Vital Signs Date Time Temp Pulse Resp B/P Pulse Ox O2 Delivery O2 Flow Rate FiO2 03/22/17 08:13 103 03/22/17 06:56 98.4 20 119/61 93 03/21/17 20:00 Nasal Cannula 2.0 Intake and Output 03/21/17 03/21/17 03/22/17 15:00 23:00 07:00 Intake Total 40 ml 1500 ml Output Total 2000 ml 900 ml Balance -1960 ml 600 ml Exam Neck: No jvd Respiratory: clear to auscultation Cardiovascular: regular rate and rhythm Gastrointestinal: other (few bs present, less distended, mild gen tenderness) Extremities: No edema (and no calf tend) Results Result Diagram: 03/22/17 0645 03/21/17 0415 Results 24 hrs Laboratory Tests Test 03/21/17 12:35 03/21/17 14:45 03/22/17 06:45 Troponin I < 0.012 White Blood Count 9.6 # 10.6 Red Blood Count 3.04 L 2.99 L Hemoglobin 10.5 L 9.9 L Hematocrit 30.0 L 29.4 L Mean Corpuscular Volume 98.7 98.3 Mean Corpuscular Hemoglobin 34.5 H 33.1 H Mean Corpuscular Hemoglobin Concent 35.0 33.7 Red Cell Distribution Width 13.2 13.3 Platelet Count 152 157 Mean Platelet Volume 11.4 H 11.8 H Neutrophils % 77.4 H 75.8 Lymphocytes % 10.0 L 10.7 L Monocytes % 11.0 12.0 H Eosinophils % 1.0 0.7 Basophils % 0.2 0.2 Nucleated Red Blood Cells % 0.0 0.0 Neutrophils # 7.4 8.1 H Lymphocytes # 1.0 1.1 Monocytes # 1.1 H 1.3 H Eosinophils # 0.1 0.1 Basophils # 0.0 0.0 Nucleated Red Blood Cells # 0.0 0.0 Medications Medications Current Medications Oxycodone/ Acetaminophen (Endocet ( 325)) 1 tab Q4H PRN PO PAIN LEVEL 1-5 Last administered on 03/22/17 06:50; Admin Dose 1 TAB; Start 03/21/17 at 10:00 Oxycodone/ Acetaminophen (Endocet ( 325)) 2 tab Q4H PRN PO PAIN LEVEL 6-10 Last administered on 03/21/17 22:23; Admin Dose 2 TAB; Start 03/21/17 at 10:00 Hydromorphone HCl (Dilaudid) 0.2 mg Q1H PRN IV BREAKTHROUGH PAIN Last administered on 03/19/17 14:28; Admin Dose 0.2 MG; Start 03/19/17 at 12:30 Ondansetron HCl (Zofran Inj) 4 mg Q6H PRN IV NAUSEA AND/OR VOMITING Last administered on 03/20/17 01:08; Admin Dose 4 MG; Start 03/19/17 at 12:30 Bisacodyl (Dulcolax Supp) 10 mg DAILY PRN [place] CONSTIPATION; Start 03/19/17 at 12: 30 Docusate Sodium (Colace) 100 mg BID PO Last administered on 03/21/17 21:36; Admin Dose 100 MG; Start 03/19/17 at 21:00 Al Hydrox/Mg Hydrox/Simethicone (Mag-Al Plus) 15 ml Q6H PRN PO CONSTIPATION/ DYSPEPSIA Last administered on 03/21/17 15:01; Admin Dose 15 ML; Start 03/19/17 at 12:30 Acetaminophen (Tylenol Tab) 650 mg Q4H PRN PO CONNORS OR TEMP GREATER THAN 101.3F Last administered on 03/21/17 20:02; Admin Dose 650 MG; Start 03/19/17 at 12:30 Carisoprodol (Soma) 350 mg TID PRN PO MUSCLE SPASMS Last administered on 18:07; Admin Dose 350 MG; Start 03/19/17 at 12:30 Phenol (Cepastat Lozenge) 1 lozenge PRN PRN [place] SORE THROAT; Start 03/19/17 at 12 :30 Diphenhydramine HCl (Benadryl) 25 mg Q6H PRN IV ITCHING; Start 03/19/17 at 12:30 Naloxone HCl (Narcan) 0.2 mg Q2M PRN IV RR 8 BREATHS/MIN OR LESS; Start at 12:30 Alprazolam 0.5 mg 0.5 mg BID PO Last administered on 03/21/17 21:36; Admin Dose 0.5 MG; Start 03/19/17 at 14:00 Sodium Chloride (NS) 1,000 ml @ 125 mls/hr Q8H IV Last administered on 05:13; Admin Dose 125 MLS/HR; Start 03/20/17 at 08:30 SAVANNA CURRY MD March 22, 2017 08:27
--- NOTE | 2017-03-22 08:36 | RADRPT ---
Echocardiogram Report Patient Name: SAMAN GARCIA Gender: Male Date: 1955 Study Date: 21-Mar-2017 [facility]ter [facility] Location: [facility] Ref. Physician: GABE KESSLER Quality: Technically Difficult Study Procedures: Transthoracic echocardiogram with complete 2D, M-Mode, and doppler examination. Indications: Tachycardia. 2D/M Mode Doppler Measurement Value Normal Ranges Measurement Value Normal Ranges LVIDd 2D 5.4 3.5 - 5.6 cm INGA Vmax 1.6 cm2 LVIDs 2D 2.9 2.1 - 4.1 cm AV Peak Leon 1.6 m/sec FS 2D 46.4 % AV Peak PG 11.0 mmHg LVPWd 2D 0.9 0.6 - 1.1 cm LVOT Peak Leon 1.2 m/sec IVSd 2D 1.0 0.6 - 1.1 cm LVOT Peak PG 5.0 mmHg IVS/LVPW 2D 1.1 MV E Peak Leon 0.8 m/sec AoR Diam 2D 2.1 2.0 - 3.7 cm MV A Peak Leon 0.9 m/sec LA/Ao 2D 1 0 - 1 MV E/A 0.8 EDV 2D 160.0 cm3 MV Decel Time 165 msec ESV 2D 24.6 cm3 MV E/A 0.8 LA Dimen 2D 2.9 2.3 - 4.0 cm TR Peak Leon 2.0 m/sec LVOT Diam 1.7 cm TR Peak PG 16.0 mmHg LVOT Area 2.3 cm2 RVSP 19.0 mmHg Findings Left Ventricle: Normal left ventricular systolic function. Normal left ventricular cavity size. Normal left ventricular wall thickness. Ejection fraction is visually estimated at 65 %. Tissue Doppler/Mitral Doppler indices are indeterminate in this study due to the presence of elevated heart rate and fusion of e/a waves. Right Ventricle: Normal right ventricular size. Normal right ventricular systolic function. Left Atrium: The left atrium is normal in size. Right Atrium: The right atrium is normal in size. Mitral Valve: Mitral valve is not well visualized. Trace mitral regurgitation. Aortic Valve: No significant aortic stenosis or insufficiency. Aortic valve not well visualized. Tricuspid Valve: Tricuspid valve not well visualized. Unable to obtain RVSP due to minimal presence of tricuspid regurgitation. There is trace tricuspid regurgitation. Pulmonic Valve: Pulmonic valve not well visualized. Pericardium: There is an anterior echo free space consistent with epicardial fat pad. Aorta: Normal aortic root. IVC: Normal size and normal respiratory collapse consistent with normal right atrial pressure. Conclusions Very technically difficult study. Normal left ventricular systolic function. Normal left ventricular cavity size. Normal left ventricular wall thickness. Ejection fraction is visually estimated at 65 %. Tissue Doppler/Mitral Doppler indices are indeterminate in this study due to the presence of elevated heart rate and fusion of e/a waves. Normal right ventricular size. Normal right ventricular systolic function. Tricuspid valve not well visualized. Unable to obtain RVSP due to minimal presence of tricuspid regurgitation. There is trace tricuspid regurgitation. There is an anterior echo free space consistent with epicardial fat pad. Normal size and normal respiratory collapse consistent with normal right atrial pressure. Electronically Signed By: Gabe Kessler 22-Mar-2017 08:36:15 -0700 Patient Name: SAMAN GARCIA Study Date: 21-Mar-2017 [id number]
[2017-03-22 08:51] LABS: AMYLASE < 30 U/L (11-123)
[2017-03-22 09:11] LABS: ALBUMIN 3.1 g/dl (3.3-4.9); ALBUMIN/GLOBULIN RATIO 1.1; BILIRUBIN,INDIRECT 0.9 mg/dl (0-1.1); BILIRUBIN,TOTAL 0.9 mg/dl (0.2-1.3); CALCIUM 8.3 mg/dl (8.4-10.2); CREATININE 0.93 mg/dl (0.61-1.24); POTASSIUM 4.1 mmol/L (3.5-5.1); TOTAL PROTEIN 5.9 g/dl (6.1-8.1)
[2017-03-22] MEDS: DOCUSATE SODIUM 100 MG CAP PO SCH ×2 (09:39→20:41)
[2017-03-22] MEDS: ALPRAZOLAM 0.5 MG TAB PO SCH ×2 (09:39→22:16)
--- NOTE | 2017-03-22 11:46 | RADRPT ---
PROCEDURE: XR Abdomen. CLINICAL INDICATION: Abdominal pain and distension. TECHNIQUE: AP supine abdomen x-ray. COMPARISON: 03/19/2017. FINDINGS: The bowel gas pattern is normal with no evidence of obstruction. As seen previously, there has been prior lower lumbar spine surgery with hardware noted. There is a left hip total arthroplasty. The osseous structures are otherwise unremarkable. There are no abnormal calcifications overlying the urinary tracts. There is a Su catheter in the urinary bladder. IMPRESSION: 1. No evidence of obstruction. 2. No change from 03/19/2017. RPTAT: QQ .Skyler Freeman MD, MD Date Time Electronically viewed and signed by .Skyler Freeman MD, MD on 03/22/2017 11:45 .R/
[2017-03-22] MEDS ORDERED: SODIUM PHOSPHATE 20 MEQ in SOD CHLORIDE 0.9% 250 ML IVPB ONE (14:30)
[2017-03-22] MEDS: CARISOPRODOL 350 MG TAB PO PRN (18:30)
[2017-03-22] MEDS: ACETAMINOPHEN 325 MG TAB PO PRN (18:30)
[2017-03-23] VITALS (10 sets, daily range): BP systolic 112–148; BP diastolic 69–77; PULSE 83–110; RESP 16–20
[2017-03-23] MEDS: OXYCODONE/ACETAMINOPHEN (10/325) TAB PO PRN ×4 (03:22→16:32)
[2017-03-23 07:12] LABS: ADD SCAN DIFF NO
[2017-03-23 07:17] LABS: BASOPHILS % 0.2 % (0.0-2.0); EOSINOPHILS # 0.2 10^3/ul (0.0-0.5); HEMATOCRIT 26.6 % (42.0-52.0); HEMOGLOBIN 9.3 g/dl (14.0-18.0); LYMPHOCYTES # 1.6 10^3/ul (0.8-2.9); LYMPHOCYTES % 19.4 % (15.0-51.0); MEAN CORPUSCULAR HEMOGLOBIN 33.8 pg (29.0-33.0); MEAN CORPUSCULAR VOLUME 96.7 fl (82.0-101.0); MEAN PLATELET VOLUME 11.1 fl (7.4-10.4); MONOCYTE # 1.2 10^3/ul (0.3-0.9); MONOCYTES % 14.5 % (0.0-11.0); NEUTROPHIL # 5.4 10^3/ul (1.6-7.5); NEUTROPHILS % 63.2 % (39.0-77.0); PLATELET COUNT 198 10^3/UL (140-415); RED BLOOD COUNT 2.75 10^6/ul (4.70-6.10); WHITE BLOOD COUNT 8.5 10^3/ul (4.8-10.8)
[2017-03-23] MEDS: ALPRAZOLAM 0.5 MG TAB PO SCH (08:14)
[2017-03-23] MEDS: DOCUSATE SODIUM 100 MG CAP PO SCH (08:14)
[2017-03-23 09:17] LABS: CALCIUM 8.4 mg/dl (8.4-10.2); CREATININE 0.81 mg/dl (0.61-1.24); MAGNESIUM 2.3 mg/dl (1.7-2.5); PHOSPHORUS 3.1 mg/dl (2.5-4.9); POTASSIUM 3.3 mmol/L (3.5-5.1)
[2017-03-23] MEDS ORDERED: POTASSIUM CHLORIDE (SR) 20 MEQ TAB PO STA (14:33)
--- NOTE | 2017-03-23 14:38 | CONS ---
Date/Time of Note Date/Time of Note DATE: 03/23/17 TIME: 14:35 Assessment/Plan Assessment/Plan Additional Assessment/Plan 62 M with anterior laminectomy, complicated by tachycardia secondary to volume and contraction, now resolved, ARF resolved, anemia d/c to sn[facility] for rehab -pain controlled -abd distention, simethicone -encourage ambulation -incision c/d/i discussed with surgery stable for d/c to snf replace kcl discussed with rn Consultation Date/Type/Reason Admit Date/Time March 19, 2017 at 05:35 Initial Consult Date 03/21/18 Type of Consultation: Cardiology Referring Provider: SAVANNA CURRY MD 24 HR Interval Summary Free Text/Dictation had BM this afternoon has abd distention, c/d/i anterior abdomen no fevers daughter at bedside Exam/Review of Systems Vital Signs Vitals Vital Signs Date Time Temp Pulse Resp B/P Pulse Ox O2 Delivery O2 Flow Rate FiO2 03/23/17 12:26 87 03/23/17 11:09 98.2 20 130/75 98 03/22/17 20:00 Nasal Cannula 2.0 Intake and Output 03/22/17 03/22/17 03/23/17 15:00 23:00 07:00 Intake Total 650 ml 1300 ml Output Total 500 ml Balance 150 ml 1300 ml Exam Constitutional: alert, oriented Head: normocephalic Eyes: EOMI Neck: supple Respiratory: clear to auscultation Gastrointestinal: distended Results Result Diagram: 03/23/17 0645 03/23/17 0645 Results 24 hrs Laboratory Tests Test 03/23/17 06:45 White Blood Count 8.5 Red Blood Count 2.75 L Hemoglobin 9.3 L Hematocrit 26.6 L Mean Corpuscular Volume 96.7 Mean Corpuscular Hemoglobin 33.8 H Mean Corpuscular Hemoglobin Concent 35.0 Red Cell Distribution Width 13.0 Platelet Count 198 # Mean Platelet Volume 11.1 H Neutrophils % 63.2 Lymphocytes % 19.4 Monocytes % 14.5 H Eosinophils % 2.0 Basophils % 0.2 Nucleated Red Blood Cells % 0.0 Neutrophils # 5.4 Lymphocytes # 1.6 Monocytes # 1.2 H Eosinophils # 0.2 Basophils # 0.0 Nucleated Red Blood Cells # 0.0 Sodium Level 135 Potassium Level 3.3 L Chloride Level 100 Carbon Dioxide Level 29 Anion Gap 9 Blood Urea Nitrogen 6 L Creatinine 0.81 Glucose Level 117 Calcium Level 8.4 Phosphorus Level 3.1 Magnesium Level 2.3 Medications Medications Current Medications Oxycodone/ Acetaminophen (Endocet (10 325)) 1 tab Q4H PRN PO PAIN LEVEL 1-5 Last administered on 03/23/17 08:24; Admin Dose 1 TAB; Start 03/21/17 at 10:00 Oxycodone/ Acetaminophen (Endocet (10 325)) 2 tab Q4H PRN PO PAIN LEVEL 6-10 Last administered on 03/23/17 12:19; Admin Dose 2 TAB; Start 03/21/17 at 10:00 Hydromorphone HCl (Dilaudid) 0.2 mg Q1H PRN IV BREAKTHROUGH PAIN Last administered on 03/19/17 14:28; Admin Dose 0.2 MG; Start 03/19/17 at 12:30 Ondansetron HCl (Zofran Inj) 4 mg Q6H PRN IV NAUSEA AND/OR VOMITING Last administered on 03/20/17 01:08; Admin Dose 4 MG; Start 03/19/17 at 12:30 Bisacodyl (Dulcolax Supp) 10 mg DAILY PRN [place] CONSTIPATION; Start 03/19/17 at 12: 30 Docusate Sodium (Colace) 100 mg BID PO Last administered on 03/23/17 08:14; Admin Dose 100 MG; Start 03/19/17 at 21:00 Al Hydrox/Mg Hydrox/Simethicone (Mag-Al Plus) 15 ml Q6H PRN PO CONSTIPATION/ DYSPEPSIA Last administered on 03/21/17 15:01; Admin Dose 15 ML; Start 03/19/17 at 12:30 Acetaminophen (Tylenol Tab) 650 mg Q4H PRN PO CONNORS OR TEMP GREATER THAN 101.3F Last administered on 03/22/17 18:30; Admin Dose 650 MG; Start 03/19/17 at 12:30 Carisoprodol (Soma) 350 mg TID PRN PO MUSCLE SPASMS Last administered on 18:30; Admin Dose 350 MG; Start 03/19/17 at 12:30 Phenol (Cepastat Lozenge) 1 lozenge PRN PRN MT SORE THROAT; Start 03/19/17 at 12 :30 Diphenhydramine HCl (Benadryl) 25 mg Q6H PRN IV ITCHING; Start 03/19/17 at 12:30 Naloxone HCl (Narcan) 0.2 mg Q2M PRN IV RR 8 BREATHS/MIN OR LESS; Start at 12:30 Alprazolam 0.5 mg 0.5 mg BID PO Last administered on 03/23/17 08:14; Admin Dose 0.5 MG; Start 03/19/17 at 14:00 Sodium Chloride (NS) 1,000 ml @ 50 mls/hr Q20H IV Last administered on 20:20; Admin Dose 50 MLS/HR; Start 03/20/17 at 08:30 GINETTE BAL MD March 23, 2017 14:38
[2017-03-23] MEDS: SOD CHLORIDE 0.9% 1,000 ML IV SCH (16:20)
== END 2017-03-23 18:42 | DRG 454 ==
LOC: REC 05:35 → MS1 13:56 → TEL 03-21 08:48
PROVIDERS: ADMIT Specialist; ATTEND Specialist
PROC: 0SG00K1 Fusion of Lumbar Vertebral Joint with Nonautologous Tissue Substitute, Posterior Approach, Posterior Column, Open Approach (ICD-10-PCS; 2017-03-19)
PROC: 0SG30A0 Fusion of Lumbosacral Joint with Interbody Fusion Device, Anterior Approach, Anterior Column, Open Approach (ICD-10-PCS; 2017-03-19)
PROC: 0ST20ZZ Resection of Lumbar Vertebral Disc, Open Approach (ICD-10-PCS; 2017-03-19)
PROC: 0ST40ZZ Resection of Lumbosacral Disc, Open Approach (ICD-10-PCS; 2017-03-19)
PROC: 0SG30K1 Fusion of Lumbosacral Joint with Nonautologous Tissue Substitute, Posterior Approach, Posterior Column, Open Approach (ICD-10-PCS; 2017-03-19)
PROC: 07DS3ZZ Extraction of Vertebral Bone Marrow, Percutaneous Approach (ICD-10-PCS; 2017-03-19)
PROC: 4A11X4G Monitoring of Peripheral Nervous Electrical Activity, Intraoperative, External Approach (ICD-10-PCS; 2017-03-19)
PROC: 0SG00A0 Fusion of Lumbar Vertebral Joint with Interbody Fusion Device, Anterior Approach, Anterior Column, Open Approach (ICD-10-PCS; principal; 2017-03-19 07:00)
DX: M43.16 Spondylolisthesis, lumbar region (principal); N17.9 Acute kidney failure, unspecified; I95.89 Other hypotension; K56.7 Ileus, unspecified; E66.01 Morbid (severe) obesity due to excess calories; M43.17 Spondylolisthesis, lumbosacral region; M48.06 Spinal stenosis, lumbar region; I10 Essential (primary) hypertension; F41.9 Anxiety disorder, unspecified; R00.0 Tachycardia, unspecified; Z68.36 Body mass index [BMI] 36.0-36.9, adult; Z96.642 Presence of left artificial hip joint
CPT/HCPCS: 71010; 72100; 72110; 74000; 76775; 80048; 80053; 80076; 81001; 81003; 82150; 83690; 83735; 84100; 84300; 84443; 84484; 85025; 86850; 86900; 86901; 86920; 87040; 87086; 88304; 93005; 93306; 93970; 97116; 97163; 97530; C1713; J0330; J0690; J1100; J1170; J1644; J2250; J2370; J2405; J2710; J3010; J3370; J3475; J3480; J7030; J7040; J7050; J7120; P9045; V2790

== ENCOUNTER → 2017-04-19 | Outpatient (CLI) | payer MEDICARE, BC ==
[~2017-04-19] MED LIST changes: -ALPR0.5T; -ALPR0.5T6; +ALPR0.5T6 PO; -BENA20TA48; -HYDR-3011; -LACTATED RINGER'S 1,000 ML IV* SCH; -LUN1; -NAPR-260; +OLME20TA20 PO; -VIC; +ZOLP10TA PO
--- NOTE | 2017-04-19 13:26 | RADRPT ---
PROCEDURE: Ultrasound of the bilateral lower extremity venous system. CLINICAL INDICATION: Bilateral leg pain and swelling, deep venous thrombosis TECHNIQUE: Mcneil scale with and without compression, color doppler, spectral doppler of the venous system of the bilateral lower extremities was performed. Venous augmentation maneuvers were utilized . COMPARISON: 03/21/2017 FINDINGS: RIGHT: Common femoral vein: Patent. Femoral vein: Patent. Popliteal vein: Patent. Calf veins: Patent. No soft tissue abnormalities are identified. LEFT: Common femoral vein: Patent. Femoral vein: Patent. Popliteal vein: Patent. Calf veins: Patent. No soft tissue abnormalities are identified. IMPRESSION: No evidence of a deep vein thrombosis within the bilateral lower extremities. RPTAT: AADD .Paul Sinclair MD, MD Date Time Electronically viewed and signed by .Paul Sinclair MD, on 04/19/2017 13:26 .B/
== END | disposition home or self-care (01) ==
LOC: VAS 11:55
PROVIDERS: ATTEND Family Medicine
DX: R52 Pain, unspecified (principal)
CPT/HCPCS: 93970

== ENCOUNTER 2018-04-22 06:23 | Inpatient (IN) | END 2018-04-24 15:58 | DRG 460 ==

== ENCOUNTER 2018-04-24 16:07 | Inpatient (IN) | END 2018-04-29 11:45 | DRG 561 ==